=== PATIENT | female | born 2005 | race Two or more races ===

== ENCOUNTER → 2025-01-30 | Outpatient (CLI) | payer OTHER ==
[2025-01-30 17:11] LABS: PLATELET COUNT, AUTOMATED 250 10^3/uL (150-450)
[2025-01-30 17:34] LABS: HIV 1&2 SCREEN NEGATIVE (NEGATIVE)
[2025-01-30 17:43] LABS: HEPATITIS C VIRUS ABY INDEX 0.06 INDEX (<0.8)
[2025-01-30 18:14] LABS: Trichomonas vaginalis (AMP) NOT DETECTED (NEGATIVE)
[2025-01-30 18:36] LABS: GC DNA AMPLIFICATION NEGATIVE (NEGATIVE)
== END ==
LOC: M PLALAB 15:13
PROVIDERS: ATTEND Advanced Practice Midwife
DX: Z34.80 Encounter for supervision of other normal pregnancy, unspecified trimester (principal)